=== PATIENT | male | born 1990 | race Hispanic/Latino ===

== ENCOUNTER 2018-10-31 22:58 | Emergency (ER) | payer SELFPAY ==
[2018-10-31] MEDS ORDERED: AMOXICILLIN500 MG PO (23:39)
[2018-10-31] MEDS ORDERED: LORTAB 1010 MG PO (23:39)
[2018-11-01 00:10] VITALS: BP 104/64
== END 2018-11-01 00:10 | disposition home or self-care (01) | DRG 159 ==
LOC: ED 22:58
DX: K04.7 Periapical abscess without sinus (principal)

== ENCOUNTER 2019-03-27 | Emergency (ER) | payer SELFPAY ==
[~2019-03-27] MED LIST: AMOXICILLIN500 MG PO; LORTAB 1010 MG PO
[2019-03-27] MEDS ORDERED: LORTAB 5/3255 MG PO (14:01)
[2019-03-27] MEDS ORDERED: KEFLEX500 M1 PO (14:01)
== END 2019-03-27 14:25 | disposition home or self-care (01) | DRG 563 ==
DX: S62.636B Displaced fracture of distal phalanx of right little finger, initial encounter for open fracture (principal); W20.8XXA Other cause of strike by thrown, projected or falling object, initial encounter; Y92.89 Other specified places as the place of occurrence of the external cause; Y99.0 Civilian activity done for income or pay